=== PATIENT | female | born 1925 | race Caucasian/White ===

== ENCOUNTER 2016-04-30 09:41 | Emergency (ER) | END 2016-04-30 13:07 | disposition home or self-care (01) | DX: N30.90 Cystitis, unspecified without hematuria (principal); R06.2 Wheezing; Z79.01 Long term (current) use of anticoagulants; Z95.0 Presence of cardiac pacemaker | CPT/HCPCS: 71010; 80053; 81001; 83605; 84484; 85025; 85610; 85730; 87040; 87086; 93005; J0692; J3370 ==

== ENCOUNTER 2016-06-15 06:54 | Observation (INO) | END 2016-06-16 18:00 | disposition home or self-care (01) | DX: R07.89 Other chest pain (principal); I13.0 Hypertensive heart and chronic kidney disease with heart failure and stage 1 through stage 4 chronic kidney disease, or unspecified chronic kidney disease; N18.9 Chronic kidney disease, unspecified; I50.30 Unspecified diastolic (congestive) heart failure; Z95.0 Presence of cardiac pacemaker; I48.91 Unspecified atrial fibrillation; Z79.01 Long term (current) use of anticoagulants; I25.10 Atherosclerotic heart disease of native coronary artery without angina pectoris | CPT/HCPCS: 36415; 71010; 80053; 80061; 82550; 82553; 82962; 83036; 83735; 83880; 84100; 84436; 84443; 84479; 84484; 85025; 85610; 85730; 93005; 93306; 96374; 96375; 99285; C9113; G0378; J1940 ==